=== PATIENT | male | born 1955 | race Caucasian/White ===

== ENCOUNTER 2024-06-02 11:15 | Outpatient (REF) | payer MEDICARE, BC, SELFPAY ==
[2024-06-02 13:42] LABS: Hemoglobin* 15.5 gm/dL (13.5-17.5)
[2024-06-02 19:48] LABS: PSA Diagnostic* 2.44 ng/mL (0.10-4.00)
[2024-06-04 11:00] LABS: Sex Hormone Binding Globulin 16 nmol/L (19-76); Testosterone, Adult Male 495 ng/dL (300-720); Testosterone, Free Calculation 127 pg/mL (47-244); Testosterone, Percentage Free 2.6 % (1.6-2.9)
== END 2024-06-02 11:16 | disposition home or self-care (01) ==
LOC: NPINS 11:15
PROVIDERS: PCP Internal Medicine; Visit Provider Urology
DX: R79.89 Other specified abnormal findings of blood chemistry (principal)
CPT/HCPCS: 84153; 84270; 84402; 84403; 85018

== ENCOUNTER 2025-02-25 12:37 | Emergency (ER) | payer MEDICARE, BC, SELFPAY ==
--- OUTSIDE RECORDS SUMMARY | 2025-02-08 08:25 | XMS_ITS | Encounter Summary ---
[facility] Organization [facility] Address [address] [place] [id number] Care Team Providers Care Merchandise Appraiser Name Role Phone Izaiah Kwok Primary Care Provider [phone] Reason for Referral * Procedure/Equipment (Routine) - Authorized Specialty Diagnoses / Procedures Referred By Sara t Referred To Contact Diagnoses Cervical radiculopathy Cervicalgia Foraminal stenosis of cervical region Arthropathy of cervical facet joint (HRC) Neck pain Procedures FL Spinal Injection For Pain Management Fabiola Saucedo APRN, SHRIMP PICKER [id number] [place] [address] Phone: tel: fax: Referral ID Status Reason Start Date Expiration Date V isits Requested Visits Authorized [id number] Authorized 02/09/2025 05/23/2025 1 1 Reason for Visit * Reason Comments CONSULT Cervical pain Encounter Details Date Type Department Care Team (Late st Contact Info) Description 02/08/2025 8:25 AM CDT [facility] [address] [place] [address] Fabiola Saucedo APRN, SHRIMP PICKER [phone] [place] [address] Cervical radiculopathy (Primary Dx); Cervicalgia; Foraminal stenosis of cervical region; Arthropathy of cervical facet joint (HRC); Neck pain Social History Tobacco Use Types Packs/Day Years Used Date Smoking Tobacco: Never Smokeless Tobacco: Never Sex and Gender Information Value Date Recorded Sex Assigned at Not on file 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 The injection is used both for pain relief and diagnostic purposes. The injection may take up to 10-14 days to feel the full effect. - If you are diabetic the steroid used in the injection may increase your blood sugars. Please monitor your blood sugars closely post injection. Please follow up in clinic or via phone visit 2-3 weeks following the injection. Appointment Scheduling: The clinic will contact you to schedule your injection. Fabiola Saucedo CNP Orthopedic Spine [facility] documented in this encounter Progress Notes * Fabiola Saucedo APRN, CNP - 02/08/2025 8:25 AM CDT Images from the original note were not included. [facility]: HPI: Ludin Deleon is a 69 y.o. male who presents today for initial consult for neck pain since 2020. He saw Charisse Pulido CNP in 2021 and a BRENNON was ordered. He had a right paramedian C6-7 KENNEDY on 06/23/2021 and notes relief of his pain until 3 weeks ago. He states he had been doing well and recently starting to have right sided neck and shoulder pain extending along the right upper arm. He deniespain extending past the right elbow. He notes in the past his right thumb was numb, however, not currently. He rates his pain 6/10. He denies left sided pain. He notes the pain worse with sitting in the recliner. He also has pain with turning his head. He notes massaging the area helpful and applying heat. He takes ibuprofen prn with minimal relief. He denies BUE weakness, dropping objects or issues with gait/balance. HE denies bowel/bladder incontinence. Past Medical History[1] Problem List[2] Review Of Systems Musculoskeletal: neck pain Neurologic: RUE N/T ROS: 10 point ROS neg other than the symptoms noted above in the HPI. PHYSICAL EXAM: HEENT: Normocephalic, atraumatic. Heart: No peripheral edema Lungs: No SOB Skin: Warm and dry, good capillary refill. Extremities: no edema, cyanosis NEUROLOGICAL EXAMINATION: Mental status: Awake and alert; answers questions appropriately, speech is fluent. Cranial nerves: II-XII grossly intact. Motor: Shoulder Abduction: Right: 5/5 Left: 5/5 Biceps: Right: 5/5 Left: 5/5 Triceps: Right: 5/5 Left: 5/5 Wrist Extensors: Right: 5/5 Left: 5/5 Wrist Flexors: Right: 5/5 Left: 5/5 interosseus : Right: 5/5 Left: 5/5 Hip Flexor: Right: 5/5 Left: 5/5 Hip Adductor: Right: 5/5 Left: 5/5 Hip Abductor: Right: 5/5 Left: 5/5 Gastroc Soleus: Right: 5/5 Left: 5/5 Tib/Ant: Right: 5/ Left: 5/5 EHL: Right: 5/ Left: 55 DF: Right: 5/5 Left: 5/5 PF: Right: 5/5 Left: 5/5 Reflexes: BUE DTR: Biceps 1+ symmetric Brachioradialis 1+ symmetric BLE DTR: Patellar: 1+ symmetric Achilles: 1+ symmetric Sensation intact to light touch to BUE Clonus negative Tripathi's test negative Spurling's test positive Gait: Stable, steady and independent; non-myelopathic Cervical examination reveals good range of motion. Tenderness to palpation of the cervical spine midline and along the right paraspinous muscles, no left sided tenderness. Lumbar examination reveals no tenderness of the spine. Imaging: MR Cervical Spine WO IV Cont Order: [id number] Status: Final result Next appt: None Dx: Neck pain; Cervical radiculopathy; Ce... Test Result Released: No Details Reading Physician Reading Date Result Priority ИринаJose Luis MD [phone] 06/04/2021 Routine Narrative & Impression IMPRESSION INDICATION: Cervical radiculopathy, no red flags TECHNIQUE: MRI of the cervical spine without contrast. COMPARISON: Plain film 06/03/2021. FINDINGS: The visualized midline posterior fossa structures are unremarkable. Normal cord signal. Normal marrow signal. Normal alignment. The visualized paraspinal structures unremarkable. Axial: C2-3: Mild right foraminal stenosis secondary to facet hypertrophy and uncovertebral spurring. The canal is patent. C3-4: Mild bilateral foraminal stenosis secondary to spurring. No canal stenosis. C4-5: A small posterior disc osteophyte complex deforms the ventral thecal sac without significant canal stenosis. Mild left foraminal stenosis secondary to facet hypertrophy and uncovertebral spurring. C5-6: A posterior disc osteophyte complex deforms the thecal sac resulting in mild canal stenosis. Advanced right and moderate left foraminal stenosis secondary to facet hypertrophy and uncovertebraljoint spurring C6-7: A left central posterior disc osteophyte complex deforms the ventral thecal sac resulting in mild canal stenosis. Advanced bilateral foraminal stenosis secondary to facet hypertrophy and uncovertebral joint spurring. C7-T1: No canal or foraminal stenosis. IMPRESSION: 1. Multilevel cervical spondylosis and facet arthrosis with advanced right and moderate left foraminal stenosis at C5-C6 and advanced bilateral foraminal stenosis C6-C7. 2. Additional degenerative changes detailed above. Exam Ended: 06/04/21 12:22 Last Resulted: 06/04/21 14:48 Assessment: Ludin describes similar pain along the right neck/arm compared to 2021, however, denies the pain extending along the entire right arm. He had excellent relief with a C6-7 KENNEDY in 2021 with resolutionof his pain until about 3 weeks ago. He is interested in a repeat injection; I reviewed foraminal stenosis on the right at C6-7 and C5-6 while is likely resulting in his pain. If he has any questionsor increased pain or weakness he will contact the clinic. Plan: 1) For pain relief: -Trial of heat and/or ice -Over the counter pain medications -Stretches and core exercising as tolerated 2) A C6-7 interlaminar cervical epidural steroid injection has been ordered for your neck and rightarm pain. The injection is used both for pain relief and diagnostic purposes. The injection may take up to 10-14 days to feel the full effect. - If you are diabetic the steroid used in the injection may increase your blood sugars. Please monitor your blood sugars closely post injection. Please follow up in clinic or via phone visit 2-3 weeks following the injection. Appointment Scheduling: The clinic will contact you to schedule your injection. Fabiola Saucedo CNP Orthopedic [facility] [1] No past medical history on file. [2] There is no problem list on file for this patient. documented in this encounter Plan of Treatment Scheduled Orders Name Type Priority Associated Diagnoses Orde r Schedule FL Spinal Injection For Pain Management Imaging New Routine Cervical radiculopathy Cervicalgia Foraminal stenosis of cervical region Arthropathy of cervical facet joint (HRC) Neck pain Expected: 02/08/2025 (Approximate), Expires: 02/08/2026 documented as of this encounter Visit Diagnoses Diagnosis Cervical radiculopathy- Primary Brachial neuritis or radiculitis nos Cervicalgia Foraminal stenosis of cervical region Spinal stenosis in cervical region Arthropathy of cervical facet joint (HRC) Cervical spondylosis without myelopathy Neck pain Cervicalgia documented in this encounter Care Teams Merchandise Appraiser Relationship Specialty Start Date End Date Izaiah Kwok DO [address] [place] [address] PCP - General Family Practice 05/12/21 documented as of this encounter
--- NOTE | 2025-02-25 12:39 | CRLHL7_ITS ---
For Patients: As a result of the Century Cures Act, medical imaging exams and procedure reports are released immediately into your electronic medical record. You may view this report before your referring provider. If you have questions, please contact your health care provider. INDICATION: Fall. Pain and swelling. TECHNIQUE: Left wrist 3 views. COMPARISON: 09/12/2013. FINDINGS: There is a healed fracture of the distal end of the radius. There is no convincing acute fracture or dislocation. There is normal carpal alignment. Dictated by Rod Veliz MD @ 02/25/2025 1:09:44 PM (Electronically Signed)
--- OUTSIDE RECORDS SUMMARY | 2025-02-25 12:39 | XMS_ITS | Clinical Summary ---
Author Organization [facility] Address [address], [place] [address] Care Team Providers Care Claims Specialist Name Role Phone Izaiah Kwok Primary Care Provider [phone] Source Comments You are receiving this document as you are listed as the primary care provider,follow-up provider, or the patient has been referred to you for consultation.This is in compliance with the Medicare andThe [facility] EHR Incentive Program,which states Providers who transition their patient to another setting of careor provider of care or refers their patient to another provider of care shouldprovide summary care record for each transition of care or referral. [employer] Allergies No known active allergies Medications chlorthalidone (HYGROTON) 25 MG tablet chlorthalidone 25 mg tablet Active diclofenac (VOLTAREN) 75 MG enteric coated tablet diclofenac sodium 75 mg tablet,delayed release Active levothyroxine (SYNTHROID) 50 MCG tablet levothyroxine 50 mcg tablet Active potassium chloride SA (KLOR-CON) 10 MEQ controlled release tablet potassium chloride ER 10 mEq tablet,extended release Active quinapril (ACCUPRIL) 40 MG tablet quinapril 40 mg tablet Active Tamsulosin HCl (FLOMAX OR) Flomax Active testosterone (ANDROGEL) 50 MG/5GM (1%) gel testosterone 1 % (50 mg/5 gram) transdermal gel packet Active methylPREDNISolon e (MEDROL 21 TABLET DOSEPACK) 4 MG tablet Follow package directions 21 Tablet 06/03/19 22 Active gabapentin (NEURONTIN) 300 MG capsule Take 1 Capsule by mouth three times a day. 270 Capsule 3 06/03/19 22 Active HYDROcodone-aceta minophen (NORCO) 5-325 MG tabletIndications :Cervical radiculopathy Take 1 Tablet by mouth two times daily as needed for Pain. 30 Tablet 06/17/19 22 Active Active Problems No known active problems Encounters Date Type Department Care Team Description 02/08/2025 8:25 AM CDT Office Visit [facility] [address] [place] [address] Fabiola Saucedo, HIDE TRIMMER, FASHION STYLIST Cervical radiculopathy (Primary Dx); Cervicalgia; Foraminal stenosis of cervical region; Arthropathy of cervical facet joint (HRC); Neck pain from Last 3 Months Social History Tobacco Use Types Packs/Day Years Used Date Smoking Tobacco: Never Smokeless Tobacco: Never Sex and Gender Information Value Date Recorded Sex Assigned at Not on file 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 Gender Identity Not on file Sexual Orientation Not on file Last Filed Vital Signs Vital Sign Reading Time Taken Comments Blood Pressure 148/80 06/23/2021 7:36 AM BODY SHOP WORKER Pulse 88 06/23/2021 7:36 AM BODY SHOP WORKER Temperature - - Respiratory Rate 11 06/23/2021 7:36 AM BODY SHOP WORKER Oxygen Saturation - - Inhaled Oxygen Concentration - - Weight 113.4 kg (250 lb) 03/16/2023 8:05 AM CDT Height 182.9 cm (6') 03/16/2023 8:05 AM CDT Body Mass Index 33.91 03/16/2023 8:05 AM CDT Plan of Treatment Health Maintenance Due Date Last Done Comments Colon Cancer Screening Plan Due 1955 Hep C Screening (Preventive Services) 1955 Medicare Annual Wellness Visit 1955 Cholesterol 1990 Zoster/Shingles Vaccine (2 o f 2) 06/29/2018 05/04/2018 COVID-19 Vaccine (4 - 2024-2 6 season) 2025 03/19/2023, 08/22/2020, 08/01/2020 Influenza Vaccine (#1) 2025 , 06/25/2022, 04/30/2010 RSV Vaccine (1 - 1-dose 75+ series) 2030 DTaP/Tdap/Td Vaccine (3 - Tdap) 06/25/2032 06/25/2022, 04/30/2010 Pneumococcal Vaccine 50+ Yrs Completed 06/25/2022 PSA Screening Discussion Discontinued 025, 06/01/2024, 07/19/2023 HepA Vaccine Aged Out No longer eligi ble based on patient's age to complete this topic HepB Vaccine Aged Out No longer eligi ble based on patient's age to complete this topic Hib Vaccine Aged Out No longer eligi ble based on patient's age to complete this topic IPV (Polio) Vaccine Aged Out No longe r eligible based on patient's age to complete this topic MCV4 Vaccine Aged Out No longer eligi ble based on patient's age to complete this topic Meningococcal B Vaccine Aged Out No l onger eligible based on patient's age to complete this topic Insurance MEDICARE [facility] MEDICARE SUPPLEMENT [employer] Care Teams Claims Specialist Relationship Specialty Start Date End Date Izaiah Kwok DO [address] [place] [address] PCP - General Family Practice 05/12/21
--- OUTSIDE RECORDS SUMMARY | 2025-02-25 12:39 | XMS_ITS | Clinical Summary ---
Author Organization [facility] Address [address] [place] [id number] Care Team Providers Care Track Sweeper Name Role Phone VotelJosué MD Primary Care Provider + Allergies Active Allergy Reactions Criticality Noted Date Comments Iodine 06/22/2006 Diatrizoate Allergen Hives Medium 02/11/2018 35 years ago. Cephalexin 06/22/2006 Penicillins 06/22/2006 Codeine-Guaifenesin Hives 02/08/2012 Hawkins flavored Fowgomo-Nbo-Hga Reductase Inhibitors Other - Describe In Comment Field 03/19/2023 GI problems with 3 different statins. Hydrocodone-Acetaminop hen Itching,Nausea Only 05/03/2014 Medications ASPIRIN 325 MG TAB, DELAYED RELEASE 1 tablet po daily 0 007 Active blood-glucose meterIndications: New onset type 2 diabetes mellitus (HC) As directed. Dispense meter, test strips, lancets covered by pt ins. E11.65 NIDDM type II, uncontrolled - Test 2 times/day. Reason: High A1C 1 Each 022 Active lancets (OneTouch Delica Plus Lancet) 30 gauge miscIndications:N ew onset type 2 diabetes mellitus (HC) As directed. Dispense item covered by pt ins. E11.9 NIDDM type II - Test 2 times/day. Reason: New diabetes 100 Each 12 022 Active blood sugar diagnostic (OneTouch Ultra Test) stripIndications: New onset type 2 diabetes mellitus (HC) TEST USING STRIP TWO TIMES A DAY DIRECTED 200 Each 3 025 Active chlorthalidone (HYGROTON) 25 mg tabletIndications :Essential hypertension Take 1 Tablet (25 mg) by mouth once daily in the morning. 90 Tablet 3 025 Active ezetimibe (ZETIA) 10 mg tabletIndications :Mixed hyperlipidemia Take 1 Tablet (10 mg) by mouth once daily. 90 Tablet 3 025 Active levothyroxine (SYNTHROID) 50 mcg tabletIndications :Hypothyroidism (acquired) Take 1 Tablet (50 mcg) by mouth before breakfast. 90 Tablet 025 Active lisinopriL (PRINIVIL; ZESTRIL) 40 mg tabletIndications :Essential hypertension TAKE 1 TABLET [40MG] BY MOUTH ONCE EVERY DAY 90 Tablet 025 Active metFORMIN (GLUCOPHAGE XR) 500 mg Extended-Release tabletIndications :Type 2 diabetes mellitus without complication, with long-term current use of insulin (HC) Take 1 Tablet (500 mg) by mouth two times daily with meals. 180 Tablet 025 Active testosterone 1% (50 mg/5 g) (ANDROGEL/VOGELXO ) topical gelIndications:Lo w testosterone Apply 1 packet every day by transdermal route. 450 g 025 Active tamsulosin 0.4 mg capsuleIndication s:Benign prostatic hyperplasia with nocturia TAKE TWO CAPSULES BY MOUTH ONCE DAILY AFTER A MEAL. 180 Capsule 025 Active tamsulosin 0.4 mg capsuleIndication s:Benign prostatic hyperplasia with nocturia Take 2 Capsules (0.8 mg) by mouth once daily after a meal. 90 Capsule 3 025 2024 Discontinued Active Problems Problem Noted Date Diagnosed Date Type 2 diabetes mellitus wit hout complication, without long-term current use of insulin 07/22/2023 Treadmill stress test negative for angina pector is 01/22/2018 Low testosterone 12/23/2015 Cyst of epididymis determined by ultrasound 09/21 Overview (10/09/2015): Left side at head of epididymis. Family history of colon cancer 06/03/2015 Overview (12/11/2020): Colonoscopy 05/2015 normal repeat in 5 years Colonoscopy 11/2020 diverticulosis, long colon, repeat in 5 years, PEG 4-8L Benign prostatic hypertrophy (BPH) with nocturia 06/02/2015 Obesity (BMI 30.0-34.9) 05/04/2014 Osteoarthritis of left knee 02/02/2013 Erectile dysfunction 06/04/2011 Mixed hyperlipidemia Overview (03/21/2023): Side effects from 2 different statins tried. Feb 2023: started on zetia. Essential hypertension Other unspecified back disorder Overview (02/03/2008): h/o back injury Gilbert syndrome NAFL (nonalcoholic fatty liver) New onset type 2 diabetes mellitus Resolved Problems Problem Noted Date Diagnosed Date Resolved Date History of COVID-19 07/07/2021 06/25/19 23 Benign non-nodular prostatic hyperplasia with lower urinary tract symptoms 11/04/2016 06/25/2022 Osteoarthritis 07/17/2008 06/25/2022 Overview (07/17/2008): right sterno-clavicular jt Encounters Date Type Department Care Team Description 02/20/2025 Refill [facility] [address] [place] [address] VotelJosué MD Refill Request (Tamsulosin) 02/14/2025 Refill [facility] [address] [place] [address] Josué Torres MD Refill Request (Tamsulosin) 02/06/2025 Telephone [facility] [address] [place] [address] Josué Torres MD 01/23/2025 Refill [facility] [address] [place] [address] TyrelltelJosué MD Refill Request (Testosterone 1% (50 Mg/5 G)) from Last 3 Months Immunizations Immunization Administration Dates Next Due COVID-19 VACCINE SPIKEVAX (M ODERNA 50MCG/0.5ML) 12YO+ PFS 03/19/2023 COVID-19 vaccine (Pfizer-BioNTech 30mcg/0.3mL) FARHEEN Chopra 08/22/2020,08/01/2020 Influenza, IIV3 (Age >=3 years) 04/30/2010 Influenza, Inactivated AIIV4 (Age 65+ Years) Preserv Free 03/19/2023,06/25/2022 Pneumococcal Conj 20-valent (Prevnar 20) 023 Td (Age >=7 Years) 09/28/1994 Tdap 06/25/2022,04/30/2010 Zoster (Shingrix-RZV, recombinant) 05/04/2018, Family History Medical History Relation Name Comments Heart Disease Father CABG age 65 Other Father Alcohol problem s Stroke Father Diabetes Maternal Grandfather Diabetes Mother Hypertension Mother Heart Disease Paternal Aunt 1 Cancer-colon Paternal Aunt 2 Cancer-colon Paternal Uncle 1 Cancer-prostate Paternal Uncle 2 Diabetes type II Sister Relation Name Status Comments Father (Age 72) CVA, Hyper tension, [place] at 55 Maternal Grandfather Mother (Age 81) CVA, T2DM Paternal Aunt 1 Paternal Aunt 2 Paternal Uncle 1 Paternal Uncle 2 Sister Alive Social History Tobacco Use Types Packs/Day Years Used Date Smoking Tobacco: Never Smokeless Tobacco: Never Tobacco Cessation:Counseling Given: Yes Alcohol Use Standard Drinks/Week Comments Yes 0 (1 standard drink = 0.6 oz pur e alcohol) occasionally PHQ-2 Answer Date Recorded PHQ-2 TOTAL SCORE 2 07/22/2023 Social Connections Answer Date Recorded Do you often feel lonely or isolated from those around you? 0 2024 Financial Resource Strain Answer Date R ecorded Difficulty of Paying Living Expenses 3 2024 Difficulty of Paying Living Expenses Not on file 2024 Food Insecurity Answer Date Recorded Do you worry your food will run out before you are able to buy more? 1 2024 Transportation Needs Answer Date Record ed Does lack of transportation keep you from medica l appointments? 1 2024 Does lack of transportation keep you from work, meetings or getting things that you need? 1 2024 Housing Stability Answer Date Recorded What is your housing situation today? 1 2024 Utilities Answer Date Recorded Do you have trouble paying f or utilities (for example, heat, electricity, water, phone)? 1 2024 Sex and Gender Information Value Date Recorded Sex Assigned at Not on file Legal Sex Male 5:39 AM SPECIAL ED ASSISTANT Gender Identity Not on file Sexual Orientation Not on file Occupation Industry Job Start Date Job End Date Not on file Not on file Not on file Not on file Obstetrics History Last Filed Vital Signs Vital Sign Reading Time Taken Comments Blood Pressure 130/82 2024 1:49 PM SPECIAL ED ASSISTANT Pulse 69 2024 1:49 PM SPECIAL ED ASSISTANT Temperature 36.7 C (98.1 F) 02/02/2023 1:32 PM CDT Respiratory Rate 18 02/28/2015 11:45 AM CDT Oxygen Saturation 97% 2024 1:49 PM SPECIAL ED ASSISTANT Inhaled Oxygen Concentration - - Weight 109.3 kg (241 lb) 2024 1:49 PM SPECIAL ED ASSISTANT Height 182.9 cm (6') 2024 1:49 PM SPECIAL ED ASSISTANT Body Mass Index 32.69 2024 1:49 PM SPECIAL ED ASSISTANT Plan of Treatment Health Maintenance Due Date Last Done Comments RSV vaccine for adults or (1 - Risk 60-74 years 1-dose series) 2015 Medicare Wellness for age 65+ 2020 Depression screening for age 12+ 07/22/2024 07/23/2023, 07/22/2023, 07/22/2023, Additional history exists COVID-19 vaccine series (2024- season) 2025 03/19/2023, 08/22/2020, 08/01/2020 Influenza Vaccine (#1) 2025 , 06/25/2022, 04/30/2010 BMI (ht and wt on same day) for age 18+ 2025 2024, 07/22/2023, 10/06/2022, Additional history exists Colonoscopy through age 75 12/11/202512/11, 12/11/2020, 12/11/2020, Additional history exists Lipids for age 45-75 06/01/2029 06/01/2024, 07/19/2023, 09/30/2022, Additional history exists Tetanus booster 06/25/2032 06/25/2022, 12/12/2009, 09/28/1994 Zoster (shingles) series for age 50+ Completed 05/04/2018, 10/17/2017 Hepatitis C screening for age 18-79 Completed 09/05/2018 Pneumococcal series for age 50+ Completed 06/25/2022 Hepatitis B series for 19+ Aged Out N o longer eligible based on patient's age to complete this topic Procedures Procedure Name Priority Date/Time Associated Diagnosis Comments LIPID PANEL W REFLEX MEASURED LDL Routine 06/01/2024 3:15 PM SPECIAL ED ASSISTANT Mixed hyperlipidemia COLONOSCOPY SCREENING Routine 12/11/2020 11:05 AM CDT Screening for colon cancer ANTI HCV Routine 09/05/2018 9:44 AM CDT Total bilirubin, elevated from Last 3 Months or Most Recently Relevant to Health Maintenance Results * (ABNORMAL) LIPID PANEL W REFLEX MEASURED LDL (06/01/2024 3:15 PM SPECIAL ED ASSISTANT) CHOLESTEROL, TOTAL 232(H) <200 mg/dL [email or web address] HDL CHOLESTEROL 38(L) > OR = 40 mg/dL [email or web address] TRIGLYCERIDES 232(H) <150 mg/dL [email or web address] Comment: If a non-fasting specimen was collected, consider repeat triglyceride testing on a fasting specimen if clinically indicated. Jill et al. J. of Clin. Lipidol. 2015;9:129-169. LDL-CHOLESTEROL 155(H) mg/dL (calc) [facility] Gates Comment: Reference range: <100 Desirable range <100 mg/dL for primary prevention; <70 mg/dL for patients with CHD or diabetic patients with > or = 2 CHD risk factors. LDL-C is now calculated using the Sukh-Onofre calculation, which is a validated novel method providing better accuracy than the Friedewald equation in the estimation of LDL-C. Sukh SS et al. CAMILA. 2013;310(19): 8922-6081 (http://education.[employer]/faq/SVP609) CHOL/HDLC RATIO 6.1(H) <5.0 (calc) [email or web address] NON HDL CHOLESTEROL 194(H) <130 mg/dL (calc) [email or web address] [facility] Comment: For patients with diabetes plus 1 major ASCVD risk factor, treating to a non-HDL-C goal of <100 mg/dL (LDL-C of <70 mg/dL) is considered a therapeutic option. Blood BLOOD SPECIMEN / Unknown 06/01/2024 3:15 PM SPECIAL ED ASSISTANT 06/01/2024 3:16 PM SPECIAL ED ASSISTANT us Josué Torres MD CHEMISTRY Final Re sult [employer] [facility] [address] [place] [address], [facility] [facility] [address] [place] [address] * COLONOSCOPY (12/11/2020 11:11 AM CDT) 12/11/2020 11:1 1 AM CDT Narrative Transcriptions Sukh Anand MD - 12/11/2020 11:56 AM CDT Patient Name: Ludin Deleon Procedure Date: 12/11/2020 Gender: Male Date of : 1955 Admit Type: Outpatient Procedure: Colonoscopy Proceduralist: Sukh Annad MD , Andreia Avitia RN(Nurse) Referring MD: Izaiah Kwok Indications/Pre-Op Diagnosis: Screening in patient at increased risk:Family history of 1st-degree relative withcolorectal cancer before age 60 years, Lastcolonoscopy: May 2015 Medications: Fentanyl 150 micrograms IV, Midazolam 2 mgIV, The level of sedation administered wasmoderate Procedure Description: The patient had risks, benefits and alternatives explained to andgave informed consent. The patient had a stable cardiopulmonary status and judged an adequate candidate for conscious sedation. The Colon CF-[id number] [id number] was passed through the anus and advancedto the cecum, identified by appendiceal orifice and ileocecal valve. The colonoscopy was performed without difficulty. The patient toleratedthe procedure well. The quality of the bowel preparation was good. Anatomical landmarks were photographed. Complications: No immediate complications. Estimated Blood Loss & Specimen: Estimated blood loss: none. Specimen collected - None Findings: The perianal and digital rectal examinations were normal. The colon (entire examined portion) was moderately redundant. Many small-mouthed diverticula were found in the sigmoid colon. The exam was otherwise without abnormality on direct and retroflexion views. Impressions/Post-Op Diagnosis: - Redundant colon. - Diverticulosis in the sigmoid colon. - The examination was otherwise normal on direct and retroflexionviews. - No specimens collected. Recommendation: - Patient has a contact number available for emergencies. The signsand symptoms of potential delayed complications were discussed with the patient. Return to normal activities tomorrow. Written discharge instructions were provided to the patient. - Resume previous diet. - Continue present medications. - Repeat colonoscopy in 5 years for screening purposes. - For future colonoscopy the patient will require an extended preparation, peg 4-8L. If there are any questions, please contact the bank secrecy act officer. Moderate Sedation: Moderate (conscious) sedation was administered by the endoscopy nurse and supervised by the endoscopist. The following parameters were monitored: oxygen saturation, heart rate, respiratory rate, blood pressure, adequacy of pulmonary ventilation and reponse to care. Please refer to the patient's medical record flowsheets and nursing notes for moderate sedation details. Total physician intraservice time was 19 minutes. Sukh Anand MD 12/11/2020 11:56:02 AM This report has been signed electronically. Note Initiated On: 12/11/2020 11:11 AM Procedure Code(s): --- Professional --- 88438, Colonoscopy, flexible; diagnostic, including collection of specimen(s) bybrushing or washing, when performed (separateprocedure) Diagnosis Code(s): --- Professional --- Z80.0, Family history of malignant neoplasmof digestive organs K57.30, Diverticulosis of large intestine without perforation or abscess withoutbleeding Q43.8, Other specified congenitalmalformations of intestine CPT copyright 2020 [employer]. All rights reserved. The codes documented in this report are preliminary and upon harness installer reviewmay be revised to meet current compliance requirements. Scope In: 11:33:54 AM Scope Withdrawal Time 0 hours 6 minutes 58 seconds Scope Out: 11:50:41 AM us Sukh Anand MD PROCEDURE ORD Final Res ult * ANTI HCV (09/05/2018 9:44 AM CDT) HEPATITIS C ANTIBODY Non-React najma Non-React najma 09/05/2018 5:01 PM CDT [facility] Comment:Antibodies to HCV no t detected; does not exclude the possibility of exposure to HCV. Blood BLOOD SPECIMEN / Unknown Venipuncture / Unknown 09/05/2018 9:44 AM CDT 09/05/2018 9:44 AM CDT us Izaiah Kwok DO SEND OUTS Final Result [facility] [address] [place] [address], [place] from Last 3 Months or Most Recently Relevant to Health Maintenance Insurance MEDICARE [place] ONLY [facility] WORKERS COMP [employer] Care Teams Track Sweeper Relationship Specialty Start Date End Date Votel, Josué Kay MD [address] [place] [address] PCP - General Family Practice 04/04/24
--- OUTSIDE RECORDS SUMMARY | 2025-02-25 12:39 | XMS_ITS | Data Portability ---
Author Organization [facility] Katie gy, 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 He has evidence of significant lower urinary tract symptoms secondary to benign prostatic enlargement. We discussed multiple options including observational, medical and surgical. He is interested in a definitive approach. We discussed long-term data and success rates of holmium laser enucleation of the prostate as compared to other outlet procedures. Specifically we discussed a 1% risk of adenomatous regrowth. We discussed that any irritative symptoms may take as long as 1 year to resolve. We specifically spent time going over the details of transient postoperative stress urinary incontinence. Specifically the long-term rate would be 1% at 1 year post surgery. Patient understood this and was able to verbalize that understanding back to me today. We also discussed 1% risk of stricture, bladder neck contracture and possible need for repeat procedures in the future. The specific surgical risks were discussed including but not limited to Ml, DVT, PE, stroke, and even . We discussed risk of bleeding, infection, injury to surrounding organs, possible need for prolonged catheterization and possible need for repeat procedures. Informed consent was signed. NPO instructions were discussed. Multiple excellent questions were answered. 1. Benign Prostatic Hyperplasia (BPH) The patient's BPH is managed with Tamsulosin and Finasteride. Recent cessation of Gemtesa by the patient occurred due to inefficacy concerns. A urocuff test indicates a subnormal urinary stream. Surgical intervention with HoLEP was discussed, considering its benefits for reducing symptoms and potential risks like temporary leakage. The patient opts for watchful waiting, planning further action if symptoms become more bothersome. [email or web address] Not available 02/06/2025 18:16:12 Plan of Treatment Reminders Order Date Submit Date Provider Last Modified By Organization Details Last Modified Time Details Appointments None record ed. Lab PSA, serum or plasma 2024 025 [email or web address] [facility], [address] [place], [address], 5 10:32:34 testos terone , total, serum 2024 025 [email or web address] o [facility], [address] [place], [address], 5 11:28:15 hemogl obin (Hb), blood 2024 025 mmadrigalvaler o [facility], [address] [place], [address], 5 11:28:16 PSA, total, serum or plasma 2024 025 mmadrigalvaler o [facility], [address] [place], [address], 5 11:28:16 testos terone , total, serum 2023 024 [email or web address] [facility], [address] [place], [address], 4 08:50:33 hemogl obin (Hb), blood 2023 024 [email or web address] [facility], [address] [place], [address], 4 08:50:33 PSA, total, serum or plasma 2023 024 [email or web address] [facility], [address] [place] [address] [place], [address], 4 08:50:33 Referral None record ed. Procedures electr omyogr aphy studie s (EMG) of anal or urethr al sphinc ter, other than needle (PROC) 2024 025 rebbert Not available 5 08:17:47 comple x cystom etrogr am with voidin g pressu re studie s (PROC) 2024 025 rebbert Not available 5 08:17:48 comple x uroflo wmetry (PROC) 2024 025 rebbert Not available 5 08:17:48 Surgeries None record ed. Imaging None record ed. Medication Orders finast eride 5 mg tablet 2024 025 [id number], [facility] [address], [address], 5 12:33:48 Gemtes a 75 mg tablet [email or web address] [place] [address], [address], 5 22:56:06 testos terone 1 % (50 mg/5 gram) transd ermal gel packet 2024 025 [email or web address] o [facility] [address], [address], 5 12:40:04 testos terone 1 % (50 mg/5 gram) transd ermal gel packet 2024 025 [id number], [facility] [address], [address], 5 22:55:49 Gemtes a 75 mg tablet 2023 024 [facility], [address] [place] [address], [address], 4 12:49:12 testos terone 1 % (50 mg/5 gram) transd ermal gel packet 2023 024 [facility], [address] [place] [address], [address], 4 12:49:15 Patient TargetsNo targets recorded. Patient Instructions Encounter Date Encounter Id Patient Instructions Last Modified By Organization Details Last Modified Time 02/06/2025 [id number] Please note: Parts of this encounter note have been generated by AI based on audio conversation. Patient consent was required prior to utilizing this technology. Content review was required prior to finalizing the note. [email or web address] Not available 02/06/2025 13:04:28 Reason for Referral None Reported. Results Created Date Observation Date Name Description Value Unit Range Abnormal Flag Note LastModifiedBy Organization Detail LastModifiedTime Result Notes None recorded. Problems Name Problem SNOMED Code Status Onset Date Resolution Date Notes Provider Name and Address Organization Details Recorded Time Benign prostatic hyperplasia with outflow obstruction 768318134 Active 2024 MERARY TOMPKINS MD [address] [place] [address], [phone] [place] [address] Urology 5 18:16:43 Problem Notes None recorded. Procedures Surgical History Date Name Laterality Status Provider Name and Address Organization Details Recorded Time 5 Bladder Scan completed Priya Hemphill [facility] 02/06/2025 12:35:16 5 Bladder Scan completed Indira Marte [facility] 07/31/2024 14:02:31 5 [place] - UroCuff completed Indira Marte [facility] 07/31/2024 14:03:40 5 procedure on knee completed Gagan peng [facility] 06/28/2024 11:58:28 Imaging Results None recorded. Procedure Notes None recorded. Medical Equipment None Reported. Allergies Allergen ID Allergen Name Allergen Category Reaction Reaction Severity Criticality Documentation Date Start Date Code Code System Note Provider Name and Address Organization Details Recorded Time 555350 Product containin g penicilli n (product) medicatio n Not available Not available Not available 07/27/2022 57886 8001 SNOMED Ivan Lambert MD [address] [place] [address], [phone], [facility] 3 10:33:17 067562 cephalexi n medicatio n Not available Not available Not available 08/08/20242006 2231 RxNorm Ivan Lambert MD [address] [place] [address], [phone], [facility] 5 15:44:50 Medications Name Sig Start Date Stop Date Status Note LastModified by Organization Details LastModified Time celecoxib 200 mg capsule TAKE 2 CAPSULES BY MOUTH DAILY FOR 3 DAYS, THEN DECREASE TO 1 CAPSULE DAILY FOR 2 DAYS.* 08/08 completed Not Available Not Available Not Available cyclobenzap rine 10 mg tablet TAKE ONE TABLET BY MOUTH THREE TIMES DAILY NEEDED* 08/08 completed Not Available Not Available Not Available amoxicillin 500 mg capsule TAKE 4 TABLETS 1 HOUR BEFORE DENTAL APPOINTME NT* active Not Available Not Available No t Available valacyclovi r 1 gram tablet TAKE ONE TABLET BY MOUTH THREE TIMES DAILY* 02/06 completed Not Available Not Available Not Available chlorthalid one 25 mg tablet TAKE ONE TABLET BY MOUTH EVERY DAY IN THE MORNING.* active Not Available Not Available No t Available tamsulosin 0.4 mg capsule TAKE TWO CAPSULES BY MOUTH ONCE DAILY AFTER A MEAL.* active Not Available Not Available No t Available OneTouch Ultra Test strips USE TO TEST BLOOD GLUCOSE LEVELS TWICE DAILY.* active Not Available Not Available No t Available levothyroxi ne 50 mcg tablet TAKE ONE TABLET BY MOUTH ONE TIME DAILY BEFORE BREAKFAST * active Not Available Not Available No t Available cephalexin 500 mg capsule TAKE ONE CAPSULE BY MOUTH FOUR TIMES DAILY* 06/28 completed Not Available Not Available Not Available methylpredn isolone 4 mg tablets in a dose pack Take by mouth as instructe d per packaging (on back of foil pouch).* 08/08 completed Not Available Not Available Not Available lisinopril 40 mg tablet TAKE ONE TABLET BY MOUTH ONE TIME DAILY* active Not Available Not Available No t Available ondansetron 4 mg disintegrat ing tablet DISSOLVE ONE OR TWO TABLETS IN MOUTH EVERY EIGHT HOURS NEEDED FOR NAUSEA* 08/08 completed Not Available Not Available Not Available metformin ER 500 mg tablet,exte nded release 24 hr TAKE ONE TABLET BY MOUTH TWICE A DAY WITH MEALS* active Not Available Not Available No t Available finasteride 5 mg tablet TAKE ONE TABLET BY MOUTH ONE TIME DAILY* 02/06 completed Not Available Not Available Not Available testosteron e 1 % (50 mg/5 gram) transdermal gel packet Apply 1 packet every day by transderm al route. active Not Available Not Available No t Available oxycodone 5 mg tablet TAKE ONE TABLET BY MOUTH EVERY FOUR TO SIX HOURS NEEDED FOR PAIN* 08/08 completed Not Available Not Available Not Available hydroxyzine pamoate 25 mg capsule TAKE 1 CAPSULE BY MOUTH EVERY 4 TO 6 HOURS NEEDED FOR MUSCLE SPASMS* 08/08 completed Not Available Not Available Not Available ezetimibe 10 mg tablet TAKE ONE TABLET BY MOUTH ONE TIME DAILY* active Not Available Not Available No t Available testosteron e 50 mg/5 gram (1 %) transdermal gel apply 1 packet to dry, clean, hairless skin once daily.* active Not Available Not Available No t Available GaviLyte-G 236 gram-22.74 gram-6.74 gram-5.86 gram oral solution 07/21 completed Not Available Not Available Not Available Gemtesa 75 mg tablet Take 1 tablet every day by oral route. 2024 active Not Available Not Available Not Avai lable Vitals Date Recorded Body height Body mass index (BMI) Body weight Provider Name and Address Organization Details Last Updated DateTime 06/28/2024 182.88 cm 31.9 kg/m2 028089.21 g Gagan Leon-Nusrat ojedao [facility] 06/28/2024 11:57:27 Date Recorded Body height Body mass index (BMI) Body weight Provider Name and Address Organization Details Last Updated DateTime 07/21/2023 182.88 cm 33.2 kg/m2 629539.13 g Ivan Lambert MD [address] [facility] [address], [place], [address], [facility] 07/21/2023 12:24:38 Date Recorded Body height Body mass index (BMI) Body weight Provider Name and Address Organization Details Last Updated DateTime 08/08/2024 182.88 cm 31.9 kg/m2 893821.21 milady Lambert MD [address] [place] [address],[address] 08/08/2024 15:44:47 Date Recorded Body height Body mass index (BMI) Body weight Provider Name and Address Organization Details Last Updated DateTime 02/06/2025 182.88 cm 32.5 kg/m2 137341.17 milady Hemphill [facility] 02/06/2025 12:32:54 Social History Question Answer Notes LastModified by Organizat ion Details LastModified Time Tobacco Smoking Status Never Smoker Ivan Lambert MD [address] [place] [address],[address] [place] [address] Urolog 07/27/2022 10:33:33 What Is Your Level Of Caffeine Consumption? None Information not available 07/27/2022 What Was The Date Of Your Most Recent Tobacco Screening? 02/06/2025 [email or web address] Information not available 02/06/2025 Sex: Unknown Functional Status Question Answer Note LastModified by Organizat ion Details LastModified Time Do you use any illicit or recreational drugs? No Information not available 07/27/2022 What is your level of alcohol consumption? None Information not available 07/27/2022 Mental Status None recorded. Family History Nothing Reported Notes:- Uncle with prolonged life despite having prostate issues, no specific familial prostate cancer history mentioned. Medical History Condition Response High Blood Pressure Y Kidney Stones N Immunizations Vaccine Type Date Status Note Provider Nam e and Address Organization Details Recorded Time zoster recombinant 8 completed Ivan Lambert MD [address] [place] [address],[address], [address], [facility] 07/21/2023 12:24:43 Influenza, adjuvanted, quadrivalent, PF 3 completed Ivan Lambert MD [address] [place] [address],[address], [place], [address], [facility] 07/21/2023 12:24:43 Influenza, adjuvanted, quadrivalent, PF 3 completed Ivan Lambert MD [address] [place] [address],[address], [place], [address], [facility] 07/21/2023 12:24:43 COVID-19, mRNA, LNP-S, PF, 30 mcg/0.3 mL dose 1 completed Ivan Lambert MD [address] [place] [address],[address] [place] [address], [address], [facility] 07/21/2023 12:24:43 COVID-19, mRNA, LNP-S, PF, 30 mcg/0.3 mL dose 1 completed Ivan Lambert MD [address] [place] [address],[address], [place], [address], [facility] 07/21/2023 12:24:43 Pneumococcal conjugate PCV20, polysaccharide [id number] conjugate, adjuvant, PF 3 completed Ivan Lambert MD [address] [place] [address],[address] [place] [address], [address], [facility] 07/21/2023 12:24:43 COVID-19, mRNA, LNP-S, PF, 50 mcg/0.5 mL 3 completed Ivan Lambert MD [address] [place] [address],[address] [place] [address], [address], [facility] 07/21/2023 12:24:43 Tdap 3 completed Ivan Lambert MD [address] [place] [address],[address], [address], [facility] 07/21/2023 12:24:43 Tdap 0 completed Ivan Lambert MD [address] [place] [address],[address], [place], [address], [facility] 07/21/2023 12:24:43 Influenza, split virus, trivalent, preservative 0 completed Ivan Lambert MD [address] [place] [address],[address], [place], [address], [facility] 07/21/2023 12:24:43 Past Encounters Encounter ID Performer Location Encounter Start Date Encounter Closed Date Diagnosis/Indication Diagnosis SNOMED-CT Code Diagnosis ICD10 Code Diagnosis IMO Codes Diagnosis Note [id number] Ivan Lambert MD [facility] [address] [place] [address] 07/27/2022 10:28:44 07/30/2022 13:19:56 Testosterone level below reference range 302871934 R79.89 1. Low Testostero ne- restart Testostero ne (1%) 5 gm gel daily- F/U in 6 month with Testostero ne (Total) and PSA Lower urin gerri tract symptoms due to benign prostatic hypertrophy 6082617480 9101 N40.1 2. BPH- voiding okay- continue Flomax 0.4 mg daily [id number] Ivan Lambert MD [facility] [address] [place] [address] 07/21/2023 12:18:44 07/22/2023 08:33:16 Testosterone level below reference range 749013733 R79.89 1. Low Testostero ne- continue Testostero ne (1%) 5 gm gel daily- Follow-up in 6 month with Testostero ne (Total), PSA, and Hgb Lower urin gerri tract symptoms due to benign prostatic hypertrophy 0628226114 9101 N40.1 2. BPH- voiding okay- continue Flomax 0.4 mg BID Overactive urinary bladder 113142497 N32.81 3. Overactive bladder- try Gemtesa 75 mg daily [id number] Ivan Lambert MD [facility] [address] [place] [address] 06/28/2024 11:45:32 06/30/2024 15:21:41 Testosterone level below reference range 940338381 R79.89 1. Low Testostero ne- continue Testostero ne (1%) 5 gm gel daily- Follow-up in 12 month with Testostero ne (Total), PSA, and Hgb Lower urin gerri tract symptoms due to benign prostatic hypertrophy 0415541475 9101 N40.1 2. BPH- reports slow stream- continue Flomax 0.4 mg BID- check UroCuff and Bladder scan Overactive urinary bladder 543534659 N32.81 3. Overactive bladder- try Gemtesa 75 mg daily [id number] Ivan Lambert MD [address] [place] [address] 07/31/2024 11:08:41 08/03/2024 16:06:36 Lower urinary tract symptoms due to benign prostatic hypertrophy 6532166199 9101 N40.1 [id number] Ivan Lambert MD [address] [place] [address] 08/08/2024 15:32:44 08/11/2024 10:23:28 Testosterone level below reference range 227295520 R79.89 H/O Low Testostero ne- continue Testostero ne (1%) 5 gm gel daily- Follow-up in 12 month with Testostero ne (Total), PSA, and Hgb - (Jun 2025) Lower urin gerri tract symptoms due to benign prostatic hypertrophy 5235829998 9101 N40.1 1. BPH- reports slow stream- reviewed UroCuff (07/31/24) results - PFS score - 67% - high pressure, high flow (borderlin e obstructio n)- continue Flomax 0.4 mg BID- add Finasterid e 5 mg daily(try to avoid prostate procedure for another 6 months - due to Right TKA)- Follow-up in 6 months with PSA and Bladder scan(consi carmela further evaluation with office Cystoscopy and TRUS Prostate volume study) Overactive urinary bladder 774298420 N32.81 2. Overactive bladder- tried Gemtesa 75 mg daily (minimal change) [id number] MERARY TOMPKINS MD [address] [place] [address] 02/06/2025 12:27:48 02/15/2025 17:34:51 Benign prostatic hyperplasia with outflow obstruction 454294274 N40.1 Would like to continue monitoring his symptoms on tamsulosin and finasterid e. Will follow-up with Dr. Lambert in June 2025. Happy to see him back should he wants to consider HoLEP in the future. Health Concerns Section Related Observation LastModified by Organization Detai ls LastModified Time None Recorded Concern Status LastModified by Organization Details LastModified Time None Recorded Advance Directives Directive None Recorded Payers Insurance Date Sequence Insurance Name Policy Number Policy Davis Covered Member ID Davis Member ID Guarantor Name 07/31/2024 1 [place] [id number] Ludin Deleon [id number] Ludin Lawson Pancho 02/03/2025 1 [place] [employer] Ludin Deleon [id number] Ludin Lawson Pancho 02/15/2025 2 [place] [id number] Ludin Deleon [id number] Ludin Lawson Pancho 07/31/2024 1 [employer] (PPO) [id number] Ludin Deleon [id number] Ludin Lawson Pancho Notes Date Note Type Note Provider Name and Address Organization Details Recorded Time 07/21/2023 text/html 68 yo male with H/O low testosterone (Test - 139 ng in 2013) and erectile dysfunction. He noticed a mass in the left testicle. A scrotal U/S (10/08/15) revealed a 1.2 cm cyst in the Left epididymal head. He reports discomfort with activity - no redness or swelling. He reports difficulty obtaining and maintaining erections - no morning erections. He has tried Viagra 100 mg and Cialis 20 mg.He is on Testosterone (1%) 5 gm daily. He is also on Flomax 0.4 mg BID.07/28/21 - He presents for follow-up on low Testosterone and urination. He was sick with COVID-19 in Jun 2021. He states his energy levels are okay (when on Testosterone). He voids every 2-4 hours during the day and 0-1x/night. He has no complaints with urination - denies hesitancy or dysuria. He has difficulty obtaining and maintaining erections. 07/27/22 - He presents for follow-up on low Testosterone and rising PSA. He voids every 2-4 hours during the day and 0-1x/night. He has no complaints with urination - denies hesitancy or dysuria. He has difficulty obtaining and maintaining erections. 07/21/23 - He presents for follow-up on Low Testosterone and rising PSA. He voids every 2-4 hours during the day and 0-1x/night. He reports urgency (no leakage). He has difficulty obtaining and maintaining erections. He retired 05/23/23.Testoster one - 1,412.0 (07/19/23)PSA - 2.11 (07/19/23) PSA - 0.96 (05/29/10)- 0.77 (06/04/11)- 1.09 (06/07/12)- 1.23 (07/04/13)- 0.89 (05/28/15)- 1.94 (05/07/16)- 2.10 (10/25/16)- 1.66 (08/16/18)- 1.24 (08/07/19)- 1.54 (02/28/20)- 1.25 (07/03/21)- 1.9 (06/19/22)- 1.9 (07/22/22)- 2.11 (07/19/23)Testoster one - 974 ng (07/30/16)- 385 ng (10/25/16)- 546 ng (08/16/18)- 380 (08/07/19)- 266 (02/28/20)- 343 (07/03/21)- 114 (07/22/22)- 1,412 (07/19/23)Hgb - 17.7 (10/25/16)- 17.6 (12/06/17)- 17.7 (08/16/18)- 16.5 (08/07/19)- 17.3 (07/03/21) Ivan Lambert MD [address] [place] [address],[facility] [address], [place], [address], [facility] 07/21/2023 13:42:54 06/28/2024 text/html 69 yo male with H/O low testosterone (Test - 139 ng in 2013) and erectile dysfunction. He noticed a mass in the left testicle. A scrotal U/S (10/08/15) revealed a 1.2 cm cyst in the Left epididymal head. He reports discomfort with activity - no redness or swelling. He reports difficulty obtaining and maintaining erections - no morning erections. He has tried Viagra 100 mg and Cialis 20 mg.He is on Testosterone (1%) 5 gm daily. He is also on Flomax 0.4 mg BID.07/27/22 - He presents for follow-up on low Testosterone and rising PSA. He voids every 2-4 hours during the day and 0-1x/night. He has no complaints with urination - denies hesitancy or dysuria. He has difficulty obtaining and maintaining erections. 07/21/23 - He presents for follow-up on Low Testosterone and rising PSA. He voids every 2-4 hours during the day and 0-1x/night. He reports urgency (no leakage). He has difficulty obtaining and maintaining erections. He retired 05/23/23. 06/28/24 - He presents for follow-up on Low Testosterone and rising PSA. He voids every 2-4 hours during the day and 0-1x/night. - s/p Right TKA 1 week ago.- PSA - 2.26 (06/01/24)- Testosterone - 337 (06/01/24) PSA - 0.96 (05/29/10)- 0.77 (06/04/11)- 1.09 (06/07/12)- 1.23 (07/04/13)- 0.89 (05/28/15)- 1.94 (05/07/16)- 2.10 (10/25/16)- 1.66 (08/16/18)- 1.24 (08/07/19)- 1.54 (02/28/20)- 1.25 (07/03/21)- 1.9 (06/19/22)- 1.9 (07/22/22)- 2.11 (07/19/23)- 2.26 (06/01/24)Testostero ne - 974 ng (07/30/16)- 385 ng (10/25/16)- 546 ng (08/16/18)- 380 (08/07/19)- 266 (02/28/20)- 343 (07/03/21)- 114 (07/22/22)- 1,412 (07/19/23)- 337 (06/01/24)Hgb - 17.7 (10/25/16)- 17.6 (12/06/17)- 17.7 (08/16/18)- 16.5 (08/07/19)- 17.3 (07/03/21)- 16.6 (07/22/23) Ivan Lambert MD [address] [place] [address],[address], [place], [address], [facility] 06/28/2024 22:56:26 07/31/2024 text/html Patient presents for Urocuff testing. Performed by; JAMES Hector [facility] 08/03/2024 16:20:40 08/08/2024 text/html 69 yo male with H/O low testosterone (Test - 139 ng in 2013) and erectile dysfunction. He noticed a mass in the left testicle. A scrotal U/S (10/08/15) revealed a 1.2 cm cyst in the Left epididymal head. He reports discomfort with activity - no redness or swelling. He reports difficulty obtaining and maintaining erections - no morning erections. He has tried Viagra 100 mg and Cialis 20 mg.He is on Testosterone (1%) 5 gm daily. He is also on Flomax 0.4 mg BID.07/27/22 - He presents for follow-up on low Testosterone and rising PSA. He voids every 2-4 hours during the day and 0-1x/night. He has no complaints with urination - denies hesitancy or dysuria. He has difficulty obtaining and maintaining erections. 07/21/23 - He presents for follow-up on Low Testosterone and rising PSA. He voids every 2-4 hours during the day and 0-1x/night. He reports urgency (no leakage). He has difficulty obtaining and maintaining erections. He retired 05/23/23. 06/28/24 - He presents for follow-up on Low Testosterone and rising PSA. He voids every 2-4 hours during the day and 0-1x/night. - s/p Right TKA 1 week ago. UroCuff (07/31/24) - PFS score - 67% - high pressure, high flow (borderline obstruction)- voided 279 mL - PVR = 0 mL- Qmax - 10.5 mL/s at 164 cm H2O 08/08/24- He presents to discuss Urocuff results. He voids every 2-4 hours during the day and 0-1x/night. He is 7 weeks out from Right TKA. _PSA - 0.96 (05/29/10)- 0.77 (06/04/11)- 1.09 (06/07/12)- 1.23 (07/04/13)- 0.89 (05/28/15)- 1.94 (05/07/16)- 2.10 (10/25/16)- 1.66 (08/16/18)- 1.24 (08/07/19)- 1.54 (02/28/20)- 1.25 (07/03/21)- 1.9 (06/19/22)- 1.9 (07/22/22)- 2.11 (07/19/23)- 2.26 (06/01/24)Testostero ne - 974 ng (07/30/16)- 385 ng (10/25/16)- 546 ng (08/16/18)- 380 (08/07/19)- 266 (02/28/20)- 343 (07/03/21)- 114 (07/22/22)- 1,412 (07/19/23)- 337 (06/01/24)Hgb - 17.7 (10/25/16)- 17.6 (12/06/17)- 17.7 (08/16/18)- 16.5 (08/07/19)- 17.3 (07/03/21)- 16.6 (07/22/23) Ivan Lambert MD [address] [facility],[address], [place], [address], [facility] 08/08/2024 16:32:58 02/06/2025 text/html The patient is a 69-year-old male presenting with urinary symptoms due to Benign Prostatic Hyperplasia (BPH). He reports nocturia, occurring twice a night, increasing to thrice with evening fluid intake. Over the last six months, he has noticed a pattern of urgency upon standing which requires immediate urination. His treatment history includes Tamsulosin and Finasteride, and a recent prescription of Gemtesa, which he has discontinued due to ineffectiveness. A urocuff test indicated a urinary stream of 10.5 mL/s, described as high abnormal pressure and volume, suggestive of a trend toward obstruction. The patient shares a family history with relatives experiencing prostate issues but no known specific familial cancer history. He has been informed about surgical options, particularly interested in Holmium Laser Enucleation of the Prostate (HoLEP), but chooses to await further symptom progression before making decisions. Follows with Dr. Ivan Lambert for testosterone replacement therapy. Has known him for a number of years. MERARY TOMPKINS MD [address] [facility],[address], [place], [address], [facility] 02/06/2025 18:16:59
--- OUTSIDE RECORDS SUMMARY | 2025-02-25 12:39 | XMS_ITS | Continuity of Care Document ---
Author Organization [facility], [facility] Address [address] [facility] [place] [place] [address] Care Team Providers Care Care Administrative Tech Name Role Phone DELMY DEON Primary Care [...] Time Details Appointments None record ed. Lab None record ed. Referral None record ed. Procedures None record ed. Surgeries None record ed. Imaging None record ed. Medication Orders None record ed. Patient TargetsNo targets recorded. Patient Instructions Encounter Date Encounter Id Patient Instructions Last Modified By Organization Details Last Modified Time 02/06/2025 [id number] Please note: Parts of this encounter note have been generated by AI based on audio conversation. Patient consent was required prior to utilizing this technology. Content review was required prior to finalizing the note. [email or web address] Not available 02/06/2025 13:04:28 Reason for Referral None Reported. Problems Name Problem SNOMED Code Status Onset Date Resolution Date Notes Provider Name and Address Organization Details Recorded Time Benign prostatic hyperplasia with outflow obstruction 709415652 Active 2024 MERARY TOMPKINS MD [address] [place] [address], [phone] [place] [address] Urology 5 18:16:43 Problem Notes None recorded. Procedures Surgical History Date Name Laterality Status Provider Name and Address Organization Details Recorded Time 5 Bladder Scan completed Priya Hemphill [facility] 02/06/2025 12:35:16 5 Bladder Scan completed Indira Marte [facility] 07/31/2024 14:02:31 5 [place] - UroCuff completed Indira Marte [facility] 07/31/2024 14:03:40 5 procedure on knee completed Gagan peng [facility] 06/28/2024 11:58:28 Imaging Results None recorded. Procedure Notes None recorded. Medical Equipment None Reported. Allergies Allergen ID Allergen Name Allergen Category Reaction Reaction Severity Criticality Documentation Date Start Date Code Code System Note Provider Name and Address Organization Details Recorded Time 255246 Product containin g penicilli n (product) medicatio n Not available Not available Not available 07/27/2022 48553 [id number] SNOMED Ivna Lambert MD [address] [place] [address], [phone], [facility] 3 10:33:17 604697 cephalexi n medicatio n Not available Not available Not available 08/08/20242006 2231 RxNorm Ivan Lambert MD [address] [place] [address], [phone], [facility] 5 15:44:50 Medications Name Sig Start [...] active Not Available Not Available Not Avai labmarysol Vitals Date Recorded Body height Body mass index (BMI) Body weight Provider Name and Address Organization Details Last Updated DateTime 02/06/2025 182.88 cm 32.5 kg/m2 564249.17 g Priya Hemphill [facility] 02/06/2025 12:32:54 Social History Question Answer Notes LastModified by Organizat ion Details LastModified Time Tobacco Smoking Status Never Smoker Ivan Lambert MD [address] [facility] [address], [place], [address], [facility] 07/27/2022 10:33:33 What Is Your Level Of Caffeine Consumption? None Information not available 07/27/2022 What Was The Date Of Your Most Recent Tobacco Screening? 02/06/2025 [email or web address] Information not available 02/06/2025 Sex: Unknown Functional [...] zoster recombinant 8 completed Ivan Lambert MD [address] [place] [address],[address], [address] [place] [address], [facility] 07/21/2023 12:24:43 Influenza, adjuvanted, quadrivalent, PF 3 completed Ivan Lambert MD [address] [place] [address],[address], [phone], [facility] 07/21/2023 12:24:43 Influenza, adjuvanted, quadrivalent, PF 3 completed Ivan Lambert MD [address] [place] [address],[address], [phone], [facility] 07/21/2023 12:24:43 COVID-19, mRNA, LNP-S, PF, 30 mcg/0.3 mL dose 1 completed Ivan Lambert MD [address] [place] [address],[address], [address], [facility] 07/21/2023 12:24:43 COVID-19, mRNA, LNP-S, PF, 30 mcg/0.3 mL dose 1 completed Ivan Lambert MD [address] [place] [address],[address], [address], [facility] 07/21/2023 12:24:43 Pneumococcal conjugate PCV20, polysaccharide ALL313 conjugate, adjuvant, PF 3 completed Ivan Lambert MD [address] [place] [address],[address], [phone], [facility] 07/21/2023 12:24:43 COVID-19, mRNA, LNP-S, PF, 50 mcg/0.5 mL 3 completed Ivan Lambert MD [address] [place] [address],[address] [place] [address], [phone], [facility] 07/21/2023 12:24:43 Tdap 3 completed Ivan Lambert MD [address] [place] [address],[address] [place] [address], [phone], [facility] 07/21/2023 12:24:43 Tdap 0 completed Ivan Lambert MD [address] [place] [address],[address], [address], [facility] 07/21/2023 12:24:43 Influenza, split virus, trivalent, preservative 0 completed Ivan Lambert MD [address] [place] [address],[address], [phone], [facility] 07/21/2023 12:24:43 Past Encounters Encounter ID Performer Location Encounter Start Date Encounter Closed Date Diagnosis/Indication Diagnosis SNOMED-CT Code Diagnosis ICD10 Code Diagnosis IMO Codes Diagnosis Note [id number] MERARY TOMPKINS MD [facility] [address] [place] [address] 02/06/2025 12:27:48 02/15/2025 17:34:51 Benign prostatic hyperplasia with outflow obstruction 181034011 N40.1 Would like to continue monitoring his symptoms on tamsulosin and finasterid e. Will follow-up with Dr. Lambert in June 2025. Happy to see him back should he wants to consider HoLEP in the future. Health Concerns Section Related Observation LastModified by Organization Detai ls LastModified Time None Recorded Concern Status LastModified by Organization Details LastModified Time None Recorded Payers Encounter Date Sequence Insurance Name Policy Number Policy Davis Covered Member ID Davis Member ID Guarantor Name 02/06/2025 1 [place] [employer] Ludin Deleon [id number] Ludin Deleon 02/06/2025 2 [place] [id number] Ludin Deleon [id number] Ludin Deleon Notes Date Note Type Note Provider Name and Address Organization Details Recorded Time 02/06/2025 text/html The patient is a 69-year-old [...] number of years. MERARY TOMPKINS MD [address] [facility],[address], [place], [address], [facility] 02/06/2025 18:16:59
[2025-02-25 12:40] VITALS: BP 108/77; PULSE 78; RESP 20; TEMP 36.4; O2SAT 95; BMI 31.9
--- NOTE | 2025-02-25 12:45 | ED.UPPEXIN ---
HPI - Extremity Injury (Upper) General Time Seen by Provider: 12:45 Date Seen: 02/25/25 Chief Complaint: Extremity Pain/Injury, Upper Stated Complaint: pain, swelling on left wrist Time Seen by Provider: 02/25/25 12:45 Source: patient and RN notes reviewed Mode of arrival: ambulatory Limitations: no limitations History of Present Illness HPI narrative: This 69-year-old male is presenting to the ER with left wrist pain. Patient endorses tripping and falling on the wrist Cresencio evening. He did have pain in the wrist and swelling but just tried to live with symptoms, I did not believe that he likely fractured it in the fall. 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 He denies any numbness tingling in the fingers, there is pain with movement of the wrist. Nothing else was injured. He states he has a history of fracture with surgery with Dr. Montiel maybe about 12 years ago involving this wrist. MD complaint: injury to: left and wrist Related Data Home Medications ?Medication ?Instructions ?Recorded ?Confirmed blood sugar diagnostic (OneTouch 02/25/25 02/25/25 Ultra Test strips) chlorthalidone 25 mg tablet 25 mg PO QAM 02/25/25 02/25/25 ezetimibe 10 mg tablet 10 mg PO DAILY 02/25/25 02/25/25 levothyroxine 50 mcg tablet 50 mcg PO QAM 02/25/25 02/25/25 lisinopril 40 mg tablet 40 mg PO DAILY 02/25/25 02/25/25 metformin 500 mg tablet,extended 500 mg PO BID 02/25/25 02/25/25 release 24 hr tamsulosin 0.4 mg capsule 0.8 mg PO DAILY 02/25/25 02/25/25 testosterone 50 mg/5 gram (1 %) 1 packet topical DAILY 02/25/25 02/25/25 transdermal gel Allergies Allergy/AdvReac Type Severity Reaction Status Date / Time No Known Drug Allergies Allergy Verified 02/25/25 12:43 Review of Systems Narrative: As per HPI. Exam Const: Vital Signs, click to edit/add: Vital Signs - 24 hr 02/25/25 12:40 Temperature 97.6 F Pulse Rate [Pulse Oximeter] 78 Respiratory Rate 20 Blood Pressure [Ri ght Upper Arm] 108/77 Pulse Oximetry 95 Oxygen Delivery Me thod Room Air This 69-year-old male is alert, interactive, no apparent distress. He has visible swelling along the dorsum of the wrist. He is not tender over the ulna but has tenderness when I palpate the distal radius. There is some generalized swelling within the wrist itself, no snuffbox tenderness. His digits are fully mobile on that hand, no pain or limitation of range of motion. Neurovascular is intact. Documenting provider has reviewed patient's vital signs: yes Course Course ED Course: Patient needs x-ray imaging of his wrist to rule out fracture. He agrees to this plan. We are waiting Radiology to obtain images. Reevaluation(s) Time of Reevaluation #1: 13:15 Reevaluation #1: Reviewed with patient that the radiologist has read his x-ray is negative but I do think there may be a cortical abnormality along the distal radius. We are going to put him in a wrist splint, have him follow up with Orthopedics for recheck as I suspect there may be an occult fracture. Vital Signs Vital signs: Initial Vital Signs Temperature 97.6 F 02/25/25 12:40 Temperature Source Temporal Artery Scan 02/25/25 12:40 Pulse Rate 78 02/25/25 12:40 Respiratory Rate 20 02/25/25 12:40 Blood Pressure 108/77 02/25/25 12:40 Blood Pressure Mean 87 02/25/25 12:40 Blood Pressure Position Sitting 02/25/25 12:40 Pulse Oximetry 95 02/25/25 12:40 Oxygen Delivery Method Room Air 02/25/25 12:40 Vital Signs Temperature 97.6 F 02/25/25 12:40 Pulse Rate 78 02/25/25 12:40 Respiratory Rate 20 02/25/25 12:40 Blood Pressure 108/77 02/25/25 12:40 Pulse Oximetry 95 02/25/25 12:40 Oxygen Delivery Method Room Air 02/25/25 12:40 Temperature 97.6 F 02/25/25 12:40 Pulse Rate 78 02/25/25 12:40 Respiratory Rate 20 02/25/25 12:40 Blood Pressure 108/77 02/25/25 12:40 Pulse Oximetry 95 02/25/25 12:40 Oxygen Delivery Method Room Air 02/25/25 12:40 MDM - Extremity Injury (Upper) Imaging Data XR left wrist: Attestation: I have reviewed the pertinent imaging results. My impression: I question a fracture on the oblique view on the volar surface of the radius, can see a little small lucent line with a little irregularity along the proximal portion of that linear abnormality. Radiologist's impression: Patient: JOSSUE CHRISTIANSEN Facility:?[facility] Patient ID:?[id number] Site Patient ID:?[id number]. Site :?[id number] Study:?XRay-Extremity Left WRIST 3 VIEW-02/25/2025 1:00:06 PM Ordering Physician:?Kayla Madrigal Final Report: INDICATION: Fall. Pain and swelling. TECHNIQUE: Left wrist 3 views. COMPARISON: 09/12/2013. FINDINGS: There is a healed fracture of the distal end of the radius. There is no convincing acute fracture or dislocation. There is normal carpal alignment. Dictated by Rod Veliz MD @ 02/25/2025 1:09:44 PM (Electronic Signature) Discharge Plan Discharge Clinical Impression: Acute pain of left wrist Patient Disposition: Home, Self-Care Condition: Stable Instructions: Wrist Injury (ED) Additional Instructions: Wear the wrist splint for immobilization, do feel you are safe to take this off to shower. Try the ice, elevate wrist help decrease swelling. Can use [id number] medications as needed for pain management, follow bottle directions. Please contact the orthopedic office to get scheduled for follow-up within the next week, phone number is [phone]. I do suspect that there is an underlying wrist fracture here and do want orthopedics to re-evaluate you. Prescriptions: No Action chlorthalidone 25 mg tablet 25 mg PO QAM (DME) OneTouch Ultra Test Strip MISCELLANEOUS BID tamsulosin 0.4 mg capsule 0.8 mg PO DAILY levothyroxine 50 mcg tablet 50 mcg PO QAM lisinopril 40 mg tablet 40 mg PO DAILY metformin 500 mg tablet extended release 24 hr 500 mg PO BID ezetimibe 10 mg tablet 10 mg PO DAILY testosterone 50 mg/5 gram (1 %) gel 1 packet topical DAILY Follow Up/Referrals: Cade Gomez MD [Staff Physician, Internal Medicine] Stand Alone Forms: [employer] Info Instructions
== END 2025-02-25 13:26 | disposition home or self-care (01) ==
PROVIDERS: Emergency Provider Family Medicine; PCP Family Medicine
DX: M25.532 Pain in left wrist (principal); W01.0XXA Fall on same level from slipping, tripping and stumbling without subsequent striking against object, initial encounter
CPT/HCPCS: 29125; 73110; 99283